=== PATIENT | female | born 2000 ===

== ENCOUNTER 2023-03-02 09:24 | Emergency (ER) | payer OTHER, SELFPAY ==
[2023-03-02 09:34] VITALS: BP 119/73; PULSE 118; RESP 18; TEMP 37.9; O2SAT 98; BMI 32.3
--- NOTE | 2023-03-02 09:42 | ED.GENADUL1 ---
HPI - General Adult General Chief complaint: Shortness of Breath/Dyspnea Stated complaint: SHORTNESS OF BREATH/ DIZZINESS Time Seen by Provider: 03/02/23 09:41 Source: patient and family Mode of arrival: walk-in History of Present Illness HPI narrative: 22-year-old female here with her mother complaint of continuing sore throat and cough. She was sick last week and called her primary care doctor who started her on a steroid and azithromycin. She finished the Z-Talha two days ago. She has not had vomiting or diarrhea. She does have a history of reactive airway disease to nebulizer treatments at home yesterday. She does not appear to sputum. She has not tested for Covid or influenza at home. She is a nonsmoker. She does have pots disease. Does not have any new skin rash. Last week her symptoms started with earache and sore throat and now she developed a cough.she was also placed on steroids because her history of occasional asthma flareup. She does not use inhalers on a daily basis. Related Data Home Medications Medication Instructions Recorded Confirmed L norgest/E estradiol-E estrad 1 tab PO Q24H 03/02/23 03/02/23 0.15 mg-30 mcg (84)/10 mcg(7) tabs,3mos (Daysee) albuterol sulfate 2.5 mg/3 mL 2.5 mg inhalation Q4H 03/02/23 03/02/23 (0.083 %) solution for nebulization atenolol 25 mg tablet 12.5 mg PO Q24H 03/02/23 03/02/23 levothyroxine 25 mcg tablet 25 mcg PO Q24H 03/02/23 03/02/23 montelukast 10 mg tablet 10 mg PO Q24H 03/02/23 03/02/23 Allergies Allergy/AdvReac Type Severity Reaction Status Date / Time amoxicillin [From Augmentin] AdvReac Intermediate Verified 03/02/23 09:34 clavulanic acid AdvReac Intermediate Verified 03/02/23 09:34 [From Augmentin] PFSH PFSH Social History Smoking status: Never smoker Exam Narrative Exam Narrative: she is awake alert. Pulse oximetry is ninety-eight percent on room air with a normal respiratory rate. She's afebrile. HEENT shows both tympanic membranes be perfectly normal with no dullness no retractions no bullae no erythema. Pharynx is minimally erythematous. Her voice is normal with no stridor or learns real voice. She has no cervical adenitis. Her chest shows her lungs to be clear with no bronchospasm or wheezing on auscultation. Her skin is warm and dry with no pallor or cyanosis. Cognition and mentation are normal. She does not have any abdominal complaints. Constitutional Vital Signs, click to edit/add: Last Vital Signs Temp 100.3 F 03/02/23 09:34 Pulse 118 H 03/02/23 09:34 Resp 18 03/02/23 09:34 BP 119/73 03/02/23 09:34 Pulse Ox 98 03/02/23 09:34 Course Vital Signs Vital signs: Vital Signs Temperature 100.3 F 03/02/23 09:34 Pulse Rate 118 H 03/02/23 09:34 Respiratory Rate 18 03/02/23 09:34 Blood Pressure 119/73 03/02/23 09:34 Pulse Oximetry 98 03/02/23 09:34 Temperature 100.3 F 03/02/23 09:34 Pulse Rate 118 H 03/02/23 09:34 Respiratory Rate 18 03/02/23 09:34 Blood Pressure 119/73 03/02/23 09:34 Pulse Oximetry 98 03/02/23 09:34 Medical Decision Making [facility] Narrative Medical decision making narrative: patient presents with ongoing respiratory symptoms. She is clinically stable as witnessed by her pulse oximetry and respiratory rate. Her lungs were essentially clear. Chest x-ray was negative for any acute findings. Not surprisingly her Michele testing is positive. This was discussed with the patient and her mother she is not a candidate for any antivirals. Discharge Plan Discharge Chief Complaint: Shortness of Breath/Dyspnea Clinical Impression: COVID-19 Patient Disposition: Home, Self-Care Time of Disposition Decision: 10:26 Prescriptions / Home Meds: No Action albuterol sulfate 2.5 mg /3 mL (0.083 %) solution for nebulization 2.5 mg inhalation Q4H atenolol 25 mg tablet 12.5 mg PO Q24H L norgest/e.estradiol-e.estrad [Daysee] 0.15 mg-30 mcg (84)/10 mcg (7) tablets,dose pack,3 month 1 tab PO Q24H montelukast 10 mg tablet 10 mg PO Q24H levothyroxine 25 mcg tablet 25 mcg PO Q24H Additional Instructions: use inhalers/nebulizers as needed. Fever reducers as necessary. Stay hydrated. Pulse oximetry readings Stand Alone Forms: Portal Instructions Referrals: Physician,Non-Staff, MD [Primary Care Provider] - 1 week
--- NOTE | 2023-03-02 09:52 | XR_ITS ---
[facility] [id number] Patient Name: CIARAN NAZARIO MRN: [id number] date: 2000 Sex: F Assigned Patient Location: ER Current Patient Location: ER Accession/Order Number: [id number] Exam Date: 03/02/2023 10:00 Report Date: 03/02/2023 10:17 At the request of: MARIANNA JACKSON Procedure: XR chest 1V EXAM: XR chest 1V HISTORY: . short of breath . COMPARISON: None. TECHNIQUE: Single view of the chest FINDINGS: Heart and vascularity are unremarkable. Lungs are free of focal infiltrates. There is a slight scoliotic deformity of the spine with convexity to the right. Impression: No acute heart or lung disease identified. Electronically authenticated by: JESUS FERRARO Date: 03/02/2023 10:17
[2023-03-02 10:25] LABS: SARS-CoV-2 Ag POSITIVE (NEGATIVE)
== END 2023-03-02 10:39 | disposition home or self-care (01) ==
PROVIDERS: Emergency Provider Emergency Medicine Emergency Medical Services
DX: U07.1 COVID-19 (principal); R50.9 Fever, unspecified; J45.909 Unspecified asthma, uncomplicated
CPT/HCPCS: 71045; 87811; 99284